=== PATIENT | female | born 1940 | race Caucasian/White ===

== ENCOUNTER 2017-11-25 10:20 | Emergency (ER) | payer MEDICARE, OTHER ==
[2017-11-25] MEDS ORDERED: Metoprolol Succinate 50 MG Tab.ER PO ONE (11:32)
--- NOTE | 2017-11-25 11:37 | EDM.PDOC ---
ED HPI GENERAL MEDICAL PROBLEM - General Chief Complaint: Eye Problems Stated Complaint: BLOOD SHOT EYE Time Seen by Provider: 11/25/17 11:07 Source of Information: Reports: Patient History Limitations: Reports: No Limitations - History of Present Illness INITIAL COMMENTS - FREE TEXT/NARRATIVE: 77 yo female presents to ER with hemorrhage to left eye. She first noticed the redness two days ago and it worsened over night. It does not hurt. She does not recall trauma to the eye. She has dx of HTN but has not been on medication for 5 years. She denies headache. mild fullness in left ear. mild seasonal allergies. - Related Data Allergies Allergy/AdvReac Type Severity Reaction Status Date / Time No Known Allergies Allergy Verified 11/25/17 10:54 Home Meds: Home Meds Aspirin 325 mg PO DAILY 11/25/17 [History] Past Medical History HEENT History: Reports: Impaired Vision Cardiovascular History: Reports: Hypertension [employer] History: Reports: Musculoskeletal History: Reports: Arthritis - Past Surgical History GI Surgical History: Reports: Appendectomy Social & Family History - Tobacco Use Smoking Status *Q: Never Smoker - Caffeine Use Caffeine Use: Reports: None - Recreational Drug Use Recreational Drug Use: No ED ROS GENERAL - Review of Systems Review Of Systems: See Below Constitutional: Denies: Fever, Chills, Malaise, Fatigue HEENT: Reports: Ear Pain (mild), Hearing Loss. Denies: Ear Discharge, Eye Discharge, Eye Pain Respiratory: Denies: Shortness of Breath, Wheezing Cardiovascular: Reports: Blood Pressure Problem. Denies: Chest Pain, Edema Skin: Denies: Rash ED EXAM GENERAL W FULL EYE - Physical Exam Exam: See Below Exam Limited By: No Limitations General Appearance: Alert, WD/WN, No Apparent Distress Eye Exam: Left Eye: Bleeding (medial), Bilateral Eye: EOMI, PERRL Eyelids: Bilateral: Normal Appearance Conjunctiva & Sclera: Left: Injected (medial hemmerage without injury) Cornea Exam: Bilateral: Normal Appearance Extraocular Movements: Bilateral: Intact Pupils: Normal Accommodation Ears: Normal External Exam, Other (impacted cerumen left) Nose: Other (boggy pale nares) Throat/Mouth: Normal Inspection, Normal Lips, Normal Teeth Head: Atraumatic, Normocephalic Neck: Normal Inspection, Supple, Non-Tender, Full Range of Motion Respiratory/Chest: No Respiratory Distress, Lungs Clear, Normal Breath Sounds. No: Crackles, Rhonchi, Wheezing Cardiovascular: Regular Rate, Rhythm Neurological: Alert, Oriented, CN II-XII Intact, Normal Cognition Psychiatric: Normal Affect, Normal Mood Skin Exam: Warm, Dry, Intact, No Rash Course - Vital Signs Last Recorded V/S: Last Vital Signs Temp 35.8 C 11/25/17 10:55 Pulse 98 11/25/17 11:36 Resp 14 11/25/17 10:55 BP 196/83 H 11/25/17 11:36 Pulse Ox 94 L 11/25/17 10:55 - Orders/Labs/Meds Meds: Medications Discontinued Medications Generic Name Dose Route Start Last Admin Trade Name Freq PRN Reason Stop Dose Admin Metoprolol Succinate 50 mg 11/25/17 11:32 11/25/17 11:36 Toprol Xl PO 11/25/17 11:33 50 mg ONETIME ONE Administration Departure - Departure Time of Disposition: 11:30 Disposition: Home, Self-Care 01 Condition: Good Clinical Impression: Impacted cerumen of left ear HTN (hypertension) Qualifiers: Hypertension type: essential hypertension Qualified Code(s): I10 - Essential ( primary) hypertension Scleral hemorrhage Qualifiers: Laterality: left Qualified Code(s): H11.32 - Conjunctival hemorrhage, left eye - Discharge Information Instructions: How to Take Your Blood Pressure, [id number] Referrals: PCP,None [Primary Care Provider] - Forms: ED Department Discharge Additional Instructions: I am restarting you on a blood pressure medication today. It is very important that you stop at the clinic/urgent care for a nurse blood pressure check 1-2 times per week until your blood pressure is under control. If it is high when you stop at urgent care they may want you to see the provider. I do think this is a good idea to regain control of your blood pressure. impacted cerumen - debrox to left ear nightly until sensation clears allergies - over the counter allergy medication such as Claritin or Zyrtec I have given you enough medication to last until you return to [place] please establish with a primary care provider on returning home
== END 2017-11-25 12:27 | disposition home or self-care (01) ==
LOC: JP.ED 10:20
DX: H61.22 Impacted cerumen, left ear (principal); H11.32 Conjunctival hemorrhage, left eye; I10 Essential (primary) hypertension; Z79.82 Long term (current) use of aspirin
CPT/HCPCS: 99283; A9270